=== PATIENT | male | born 1940 | race Caucasian/White ===

== ENCOUNTER 2017-03-14 10:44 | Day surgery (SDC) | payer OTHER, MEDICARE ==
[~2017-03-14 10:44] MED LIST: ceFAZolin 2 GM/DEXTROSE 100 ML IV ONE
[2017-03-14] MEDS ORDERED: CEFAZOLIN 2 GM/DEXTROSE/100 ML BAG IV ONE (11:07)
[2017-03-14] MEDS ORDERED: ROPIVACAINE HCL 20 MG/10 ML INJ EP ONE (11:36)
[2017-03-14] MEDS ORDERED: LIDOCAINE 1% 30 ML SDV ONE (11:36)
[2017-03-14] MEDS ORDERED: DEXAMETHASONE 4 MG/ML VIAL ONE (11:36)
[2017-03-14] MEDS ORDERED: BUPIVACAINE 0.5% 30 ML SDV ONE (11:36)
[2017-03-14] MEDS ORDERED: BACITRACIN 50,000 UNITS/10 ML SYR IRR ONE (11:37)
[2017-03-14] MEDS ORDERED: MIDAZOLAM 2 MG/2 ML VIAL ONE (12:10)
[2017-03-14] MEDS ORDERED: PROPOFOL/EMULSION 500 MG/50 ML BOTTLE IV ONE ×2 (12:15→12:58)
[2017-03-14] MEDS ORDERED: fentaNYL 100 MCG/2 ML INJ ONE (12:15)
[2017-03-14] MEDS ORDERED: LIDOCAINE 2% 5 ML SDV ONE ×2 (12:17)
[2017-03-14] MEDS ORDERED: epHEDrine SULFATE 10 MG/ML SYR ONE ×2 (12:51)
[2017-03-14] MEDS ORDERED: PHENYLEPHRINE HCL 100 MCG/ML SYR ONE (12:57)
--- NOTE | 2017-03-14 14:58 | GOP ---
[f rep st] OPERATIVE REPORT DATE OF OPERATION: 03/14/2017 SURGEON: Jackie Sahu DPM ANESTHESIA: Light general. ANESTHESIOLOGIST: Sánchez Goncalves MD PREOPERATIVE DIAGNOSIS: Painful 2nd hammertoe deformity with contracture at the 2nd metatarsophalan geal joint, left foot. POSTOPERATIVE DIAGNOSIS: Painful 2nd hammertoe deformity with contracture at the 2nd metatarsophala ngeal joint, left foot, including findings consistent with gout and osteopenia. PROCEDURE PERFORMED: Second hammertoe reduction with arthrodesis. FINDINGS: DESCRIPTION OF PROCEDURE: At the level of the proximal interphalangeal joint and dorsal capsulotomy to the 2nd metatarsophalangeal joint, left foot. The patient presented to the hospital approximately an hour and a half prior to foot surgery after h aving been n.p.o. past midnight. The patient's preoperative history and physical and all lab studie s were reviewed and there were no contraindications to the proposed procedure. The patient was give n Ancef 2 g IV one-half hour prior to foot surgery. The patient was taken to the OR room and placed on the OR table in the supine position where the uma ropriate anesthetic agents were administered. This was supplemented with a local block to the foot, including to the posterior tibial nerve and to the forefoot in a Brady block fashion utilizing a tot al of 14 cc of a 1:1 mix of 1% lidocaine with 0.2% Naropin plain. The left lower extremity was then prepped and draped in the usual aseptic fashion covered with a sterile stockinette. A pneumatic an kle tourniquet was applied and padded well underneath. Utilizing elevation overlying Esmarch bandag e, the left foot was exsanguinated and the tourniquet was inflated to a pressure of 225 mmHg. The f oot was lowered to the orthopedic table. Attention was then directed to the dorsal aspect of the proximal interphalangeal joint where there w as significant contracture, and an approximate 3 to 4 cm curvilinear incision was made initiated jus t distal to the proximal interphalangeal joint and extended proximally, centered over the proximal p halanx and then curved laterally overlying the 2nd metatarsophalangeal joint. The incision was deep ened through the subcutaneous tissues to the level of the extensor tendon taking care to preserve th e neurovascular structures. Any bleeders were clamped and cauterized as needed. The extensor tendo n was incised transversely at the level the proximal interphalangeal joint and then freed from the s urrounding soft tissue structures in a distal proximal fashion, so as to release the extensor burt a pparatus dorsal to the 2nd metatarsophalangeal joint. The capsular tissues were then reflected off the head of the proximal phalanx and base of the middle phalanx so this exposed the articular surfac es. White chalky material consistent with gout was noted to the joints. Utilizing the sagittal saw, the articular surface to the head of the proximal phalanx and base of th e middle phalanx was resected perpendicular to their shafts and placed on the back table. The surgi maricarmen site was copiously irrigated with a sterile saline bacitracin solution. The bone was inspected and it was very soft in nature to both the proximal phalanx and middle phalanx. A pilot plant operator hole was ma de through the middle aspect of the head of the proximal phalanx utilizing the K-wire. The K-wire t o the headless paragon screws was then placed through the central aspect of the base of the middle p halanx and extended distally so as to exit the distal tip of the distal phalanx. The middle phalanx was then held flush incongruent to the proximal phalanx and the K-wire was retrograded proximally h olding the fusion site in a rectus position. This was checked with the C-arm. Utilizing the seth rd technique for the paragon screw system, a 2.5 headless paragon screw measuring 46 mm in length wa s placed over the guidewire after a stab incision was made to the distal tip of the 2nd digit in the area of the K-wire. The placement and length were checked and optimal. The fusion site was flush. Attention was directed to the dorsomedial aspect of the 2nd metatarsophalangeal joint where there wa s some persistent contracture of the digit, which was released. The surgical site was copiously irr igated with sterile saline bacitracin solution. The 2nd digit was now in a rectus position. The ex tensor tendon was reapproximated with 2-0 Vicryl. No additional lengthening of the extensor tendon was necessary. The tourniquet was released, and there was immediate capillary refill to all digits and hemostasis. The subcutaneous tissues were reapproximated with two 4-0 Vicryl sutures. The skin was reapproximated with 4-0 Prolene utilizing interrupted horizontal mattress sutures. A mildly co mpressive dry sterile gauze dressing was applied utilizing Xeroform, 4 x 4 gauze, Danita, and an Micah wrap. The patient tolerated the procedure and anesthesia well. Transferred to the recovery room with reji l signs stable and vascular status intact to the left lower extremity. In the recovery room, the pa tient received postoperative oral and written home care instructions. The patient had been given pr escriptions for Percocet to take postoperatively, as prescribed for pain. Orders were written for t he patient to receive a Darco shoe. Patient instructed to wear the shoe at all times when ambulatin g. The patient is scheduled for his 1st postoperative visit in 2 days and call the office earlier if an y questions or problems should arise. /[id number]/MODL
== END 2017-03-14 14:40 | disposition home or self-care (01) ==
LOC: FSGY 10:44
PROVIDERS: ATTEND Podiatrist
PROC: 0SGQ04Z Fusion of Left Toe Phalangeal Joint with Internal Fixation Device, Open Approach (ICD-10-PCS; principal; 2017-03-14 12:15)
DX: M20.42 Other hammer toe(s) (acquired), left foot (principal); I10 Essential (primary) hypertension; I25.10 Atherosclerotic heart disease of native coronary artery without angina pectoris; K21.9 Gastro-esophageal reflux disease without esophagitis; E78.5 Hyperlipidemia, unspecified
CPT/HCPCS: 28285; C1769; C1713; J0690; J1100; J2250; J2370; J2704; J2795; J3010

== ENCOUNTER → 2018-08-07 | Outpatient (CLI) | payer OTHER, MEDICARE | LOC: FIMAGING 14:26 | PROVIDERS: ATTEND Family Medicine Sports Medicine | DX: R22.42 Localized swelling, mass and lump, left lower limb (principal); E78.5 Hyperlipidemia, unspecified ==

== ENCOUNTER → 2019-01-28 | Outpatient (CLI) | payer OTHER, MEDICARE | LOC: BHFA 09:00 | PROVIDERS: ATTEND Internal Medicine Cardiovascular Disease | DX: R94.31 Abnormal electrocardiogram [ECG] [EKG] (principal) | CPT/HCPCS: 78452; 93017; A9500; J2785 ==

== ENCOUNTER → 2019-01-29 | Outpatient (CLI) | payer OTHER, MEDICARE | LOC: BHFA 15:30 | PROVIDERS: ATTEND Internal Medicine Cardiovascular Disease | DX: Z01.810 Encounter for preprocedural cardiovascular examination (principal); R94.31 Abnormal electrocardiogram [ECG] [EKG] ==